=== PATIENT | female | born 1995 | race Caucasian/White ===

== ENCOUNTER 2017-01-02 11:57 | Emergency (ER) | payer OTHER ==
[2017-01-02 13:17] LABS: Hematocrit 53 % (35-47); Hemoglobin 17.7 g/dl (12.0-16.0); Mean Corpuscular HGB Conc 34 g/dl (31-36); Mean Corpuscular Hemoglobin 32 pg (27-31); Mean Corpuscular Volume 94 fL (80-97); Mean Platelet Volume 9 um3 (7.4-10.4); Red Cell Distribution Width 13 % (10.5-15)
[2017-01-02 13:41] LABS: ALT 12 U/L (7-52); AST 19 U/L (13-39); Alkaline Phosphatase 59 U/L (34-104); Anion Gap 9 mmol/L (2-11); BUN/Creatinine Ratio 7.7 (8-20); Blood Urea Nitrogen 7 mg/dL (6-24); CO2 Carbon Dioxide 22 mmol/L (22-32); Calcium 10.1 mg/dL (8.6-10.3); Chloride 107 mmol/L (101-111); EGFR African American 98.5 (>60); EGFR Non-African American 76.6 (>60); Globulin 3.4 g/dL (2-4); Glucose 109 mg/dL (70-100); Potassium 3.9 mmol/L (3.5-5.0); Sodium 138 mmol/L (133-145); Total Protein 8.4 g/dL (6.4-8.9)
[2017-01-02 14:04] LABS: Urine Bacteria Absent (Absent); Urine Bilirubin Negative (Negative); Urine Glucose Negative (Negative); Urine Nitrite Negative (Negative)
[2017-01-02 14:11] LABS: Acetaminophen < 15 mcg/mL; Alcohol 130 mg/dL (<10); Salicylate < 2.50 mg/dL (<30)
[2017-01-02 14:12] LABS: Benzodiazepine Urine Screen None Detected (None Detect)
--- NOTE | 2017-01-02 18:25 | ED ---
Marco Brock Claudia, scribed for Richard Licona MD on 01/02/17 at 1222 . Altered Mental Status - HPI Summary HPI Summary: 21 year old female presents to the ED by [place] [employer] after they found her sleeping in her car. The pt states that they interrupted her sleep to bring her here. She admits to taking a sip of something. Pt is filed for a [address] [place] [employer]. She has 2 2cm cuts to the anterior portion of her lower leg that are actively bleeding but she does not believe tat she needs stitches at this time. Pt denies being depressed or suicidal. No aggravating or alleviating factors are noted. Level 5 caveat- Substance Abuse - History Of Current Complaint Chief Complaint: EDSubstanceAbuse Stated Complaint: 2208 Time Seen by Provider: 01/02/17 12:01 Hx Obtained From: Patient Onset/Duration: Unknown Character: Agitation Aggravating Factor(s): Nothing Alleviating Factor(s): Nothing - Allergies/Home Medications Home Medications: Home Medications Unobtainable [Unobtainable] 01/02/17 [History Confirmed 01/02/17] PMH/Surg Hx/FS Hx/Imm Hx Previously Healthy: Yes Endocrine/Hematology History: Denies: Hx Diabetes Cardiovascular History: Denies: Hx Myocardial Infarction Infectious Disease History: Denies: Traveled Outside the [place] in Last 30 Days - Family History Family History: UNKNOWN Level 5 caveat - Social History Occupation: Student Hx Substance Use: No - Unknown Levle 5 caveat Hx Tobacco Use: No - Unknown Level 5 caveat Review of Systems - ROS Summary Review of Systems Summary: Level 5 caveat- Substance Abuse. Positive: Other - 2 2cm lacerations to her lower leg Psychological: Other - "disheveled" All Other Systems Reviewed And Are Negative: No Physical Exam - Summary Physical Exam Summary: The patient is well-nourished in no acute distress and in no acute pain. The skin is warm and dry and skin color reflects adequate perfusion.Multiple bruises. 2 2cm lacerations to the anterior aspect of her lower leg. HEENT: The head is normocephalic and atraumatic. The pupils are equal and reactive. The conjunctivae are clear and without drainage. Nares are patent and without drainage. Mouth reveals moist mucous membranes and the throat is without erythema and exudate. Neck is supple with full range of motion and non-tender. Respiratory: Chest is non-tender. Lungs are clear to auscultation and breath sounds are symmetrical and equal. Cardiovascular: Hear is regular rate and rhythm. There is no murmur or rub auscultated. There is no peripheral edema and pulses are symmetrical and equal. Abdomen: The abdomen is soft and non-tender. There are normal bowel sounds heard in all four quadrants and there is no organomegaly palpated. Musculoskeletal: There is no back pain noted. Extremities are non-tender with full range of motion. There is good capillary refill. There is no peripheral edema or calf tenderness elicited. Good cap refill 2seconds. Neurological: Patient is alert and oriented to person, place and time. The patient has symmetrical motor strength in all four extremities. Cranial nerves are grossly intact. Deep tendon reflexes are symmetrical and equal in all four extremities. Psychiatric: The patient is disheveled. Triage Information Reviewed: Yes Vital Signs Reviewed: Yes Procedures - Laceration/Wound Repair 1 Location: lower extremity - left lower leg, anterior aspect more proxmial than 2nd laceration Anesthesia: 2.0% - 3 cc, Lido, Epi Length, Depth and Shape: Elliptical 2cm .5cm wide into subcutaneous fat no tendon or muscle exposure. Full ROM distally. Betadine Prep?: Yes Irrigated w/ Saline (ccs): 250 Laceration/Wound Explored: clean Closure: Multilayer - 2 layer closure , Leslie #__ - 6 Suture Type: Vicryl - 3.0 X1 Sterile Dressing Applied?: Yes 2 Location: lower extremity - left lower leg, anterior aspect more distal Anesthesia: 2.0% - 3cc , Lido, Epi Length, Depth and Shape: 2cm by .5cm width into subcutanous fat. No tendon or muscle exposure, full ROM of the distal segment. Betadine Prep?: Yes Irrigated w/ Saline (ccs): 250 Laceration/Wound Explored: clean Closure: Multilayer - 2 layer , Leslie #__ - 7 Suture Type: Vicryl - 3.0 X2 Layer Closure?: Yes Diagnostics - Laboratory Lab Results: Lab Results 01/02/17 01/02/17 01/02/17 Range/Units 13:10 13:10 13:10 WBC 11.0 H (3.5-10.8) 10^3/ul RBC 5.60 H (4.0-5.4) 10^6/ul Hgb 17.7 H (12.0-16.0) g/dl Hct 53 H (35-47) % MCV 94 (80-97) fL MCH 32 H (27-31) pg MCHC 34 (31-36) g/dl RDW 13 (10.5-15) % Plt Count 246 (150-450) 10^3/ul MPV 9 (7.4-10.4) um3 Neut % (Auto) 77.0 (38-83) % Lymph % (Auto) 18.8 L (25-47) % [place] % (Auto) 3.0 (1-9) % Eos % (Auto) 0.5 (0-6) % Baso % (Auto) 0.7 (0-2) % Absolute Neuts (auto) 8.5 H (1.5-7.7) 10^3/ul Absolute Lymphs (auto) 2.1 (1.0-4.8) 10^3/ul Absolute Monos (auto) 0.3 (0-0.8) 10^3/ul Absolute Eos (auto) 0.1 (0-0.6) 10^3/ul Absolute Basos (auto) 0.1 (0-0.2) 10^3/ul Absolute Nucleated RBC 0 10^3/ul Nucleated RBC % 0 Sodium 138 (133-145) mmol/L Potassium 3.9 (3.5-5.0) mmol/L Chloride 107 (101-111) mmol/L Carbon Dioxide 22 (22-32) mmol/L Anion Gap 9 (2-11) mmol/L BUN 7 (6-24) mg/dL Creatinine 0.91 (0.51-0.95) mg/dL Est GFR ( Amer) 98.5 (>60) Est GFR (Non-Af Amer) 76.6 (>60) BUN/Creatinine Ratio 7.7 L (8-20) Glucose 109 H (70-100) mg/dL Lactic Acid 2.7 H* (0.5-2.0) mmol/L Calcium 10.1 (8.6-10.3) mg/dL Total Bilirubin 0.60 (0.2-1.0) mg/dL AST 19 (13-39) U/L ALT 12 (7-52) U/L Alkaline Phosphatase 59 (34-104) U/L Total Protein 8.4 (6.4-8.9) g/dL Albumin 5.0 (3.2-5.2) g/dL Globulin 3.4 (2-4) g/dL Albumin/Globulin Ratio 1.5 (1-3) TSH 1.10 (0.34-5.60) mcIU/mL Beta HCG, Quant 105.89 mIU/mL Urine Color Urine Appearance Urine pH (5-9) Ur Specific [place] (1.010-1.030) Urine Protein (Negative) Urine Ketones (Negative) Urine Blood (Negative) Urine Nitrate (Negative) Urine Bilirubin (Negative) Urine Urobilinogen (Negative) Ur Leukocyte Esterase (Negative) Urine WBC (Auto) (Absent) Urine RBC (Auto) (Absent) Urine Bacteria (Absent) Urine Glucose (Negative) Salicylates < 2.50 (<30) mg/dL Urine Opiates Screen (None Detect) Acetaminophen < 15 mcg/mL Ur Barbiturates Screen (None Detect) Ur Phencyclidine Scrn (None Detect) Ur Amphetamines Screen (None Detect) U Benzodiazepines Scrn (None Detect) Urine Cocaine Screen (None Detect) U Cannabinoids Screen (None Detect) Serum Alcohol 130 H (<10) mg/dL 01/02/17 01/02/17 Range/Units 13:39 13:39 WBC (3.5-10.8) 10^3/ul RBC (4.0-5.4) 10^6/ul Hgb (12.0-16.0) g/dl Hct (35-47) % MCV (80-97) fL MCH (27-31) pg MCHC (31-36) g/dl RDW (10.5-15) % Plt Count (150-450) 10^3/ul MPV (7.4-10.4) um3 Neut % (Auto) (38-83) % Lymph % (Auto) (25-47) % [place] % (Auto) (1-9) % Eos % (Auto) (0-6) % Baso % (Auto) (0-2) % Absolute Neuts (auto) (1.5-7.7) 10^3/ul Absolute Lymphs (auto) (1.0-4.8) 10^3/ul Absolute Monos (auto) (0-0.8) 10^3/ul Absolute Eos (auto) (0-0.6) 10^3/ul Absolute Basos (auto) (0-0.2) 10^3/ul Absolute Nucleated RBC 10^3/ul Nucleated RBC % Sodium (133-145) mmol/L Potassium (3.5-5.0) mmol/L Chloride (101-111) mmol/L Carbon Dioxide (22-32) mmol/L Anion Gap (2-11) mmol/L BUN (6-24) mg/dL Creatinine (0.51-0.95) mg/dL Est GFR ( Amer) (>60) Est GFR (Non-Af Amer) (>60) BUN/Creatinine Ratio (8-20) Glucose (70-100) mg/dL Lactic Acid (0.5-2.0) mmol/L Calcium (8.6-10.3) mg/dL Total Bilirubin (0.2-1.0) mg/dL AST (13-39) U/L ALT (7-52) U/L Alkaline Phosphatase (34-104) U/L Total Protein (6.4-8.9) g/dL Albumin (3.2-5.2) g/dL Globulin (2-4) g/dL Albumin/Globulin Ratio (1-3) TSH (0.34-5.60) mcIU/mL Beta HCG, Quant mIU/mL Urine Color Straw Urine Appearance Clear Urine pH 7.0 (5-9) Ur Specific [place] 1.002 L (1.010-1.030) Urine Protein Negative (Negative) Urine Ketones Negative (Negative) Urine Blood 3+ H (Negative) Urine Nitrate Negative (Negative) Urine Bilirubin Negative (Negative) Urine Urobilinogen Negative (Negative) Ur Leukocyte Esterase Negative (Negative) Urine WBC (Auto) Absent (Absent) Urine RBC (Auto) Absent (Absent) Urine Bacteria Absent (Absent) Urine Glucose Negative (Negative) Salicylates (<30) mg/dL Urine Opiates Screen None detected (None Detect) Acetaminophen mcg/mL Ur Barbiturates Screen None detected (None Detect) Ur Phencyclidine Scrn None detected (None Detect) Ur Amphetamines Screen None detected (None Detect) U Benzodiazepines Scrn None detected (None Detect) Urine Cocaine Screen None detected (None Detect) U Cannabinoids Screen Presumptive positive H (None Detect) Serum Alcohol (<10) mg/dL Result Diagrams: 01/02/17 13:10 01/02/17 13:10 Lab Statement: Any lab studies that have been ordered have been reviewed, and results considered in the medical decision making process. Re-Evaluation - Re-Evaluation 1 Re-Evaluation Time: 16:36 Comment: Pt denies any suicidal or homicidal thoughts or plans. Pt denies any PHx of depression or any psychiatric disorders. Pt denies feeling depressed and hearing voices. Pt will be d/c home with acute alcohol intoxication. Altered Mental Statu Course/Dx - Course Assessment/Plan: MDM: After lab work-up and repair of the 2 lacerations to her left lower leg and a re-evlaution the pt will ne d/c home with follw-up instructions to have her leslie removed in 10 days and to follow-up with OBGYN Dr. Moss for . Pt is agreeable with this plan. - Diagnoses Differential Diagnosis/HQI/PQRI: Intoxication, Other - leg laceration, , depression, psychosis, substance abuse Discharge Diagnoses: Acute alcoholic intoxication, , laceration x2 left leg with repair Discharge - Discharge Plan Condition: Stable Disposition: HOME Patient Education Materials: Staple Care (ED), Alcohol Intoxication (ED), Laceration (ED), (ED) Referrals: [facility] [place] PHYSICIAN REFERRAL [Outside] James Moss MD [Medical Doctor] - Additional Instructions: Your leslie will need to be removed in 10 days. You can go to an Urgent Care, a Primary Care Physicians office or you may come back to the Emergency Department to have the leslie removed. The documentation as recorded by the Marco huang Claudia accurately reflects the service I personally performed and the decisions made by me, Richard Licona MD.
== END 2017-01-02 17:19 | disposition home or self-care (01) ==
LOC: MERGE 11:57 → ED 11:57
DX: F10.129 Alcohol abuse with intoxication, unspecified (principal); S81.812A Laceration without foreign body, left lower leg, initial encounter; Y90.6 Blood alcohol level of 120-199 mg/100 ml; X58.XXXA Exposure to other specified factors, initial encounter; Y93.9 Activity, unspecified; Y92.9 Unspecified place or not applicable; Y99.9 Unspecified external cause status; Z34.90 Encounter for supervision of normal pregnancy, unspecified, unspecified trimester
CPT/HCPCS: 12002; 36415; 80053; 80307; 80320; 80329; 81003; 81015; 83605; 84443; 84702; 85025; 99282; G0480